=== PATIENT | female | born 1990 | race Caucasian/White ===

== ENCOUNTER 2019-05-14 08:28 | Emergency (ER) | payer BC, SELFPAY ==
[2019-05-14 08:43] VITALS: BP 131/79; PULSE 105; RESP 16; TEMP 37.6; O2SAT 99
--- NOTE | 2019-05-14 08:43 | ED.URI ---
HPI - URI/Sore Throat General Chief Complaint: Upper Respiratory Infection Stated Complaint: Cough Time Seen by Provider: 05/14/19 08:45 Source: patient and RN notes reviewed Mode of arrival: ambulatory Limitations: no limitations History of Present Illness HPI Narrative: 28 year old female presents to [facility] care with complaints of cough which is productive for the past 4 days, has nasal stuffiness, occipital headache, has felt feverish and had chills. Patient states that she has history of exertion asthma denies any feelings of dyspnea, denies any chest pain, pressure or feelings of palpitations. Patient admits to tobacco abuse of 1ppd of cigarettes for the past 11 years. Patient states that she has been taking Dayquil for her symptoms. MD elicited complaint: fever (states has felt feverish and had chills), cough, nasal congestion and other (headache) Pertinent past history: asthma Onset (ago): day(s) (4) Consistency: progressively worsening Severity: mild Pain scale (0-10): 2 Description of mucous: other (states thick) Able to tolerate fluids by mouth: Yes Exacerbating factors: exertion and deep breaths Relieving factors: nothing Associated symptoms: chills, nasal congestion and cough (productive) Treatments prior to arrival: other (dayquil,) Related Data Home Medications Medication Instructions Recorded Confirmed albuterol sulfate 2 puff INHALATION Q4-6H 05/14/19 05/14/19 gabapentin 300 mg PO TID 05/14/19 05/14/19 Allergies Allergy/AdvReac Type Severity Reaction Status Date / Time No Known Allergies Allergy Unknown Verified 05/14/19 08:48 Review of Systems Review of Systems: Narrative: CONSTITUTIONAL: reports has felt feverish, chills, or sweats. EYES: Denies visual changes, redness, or discharge. ENT: Denies rhinorrhea,nasal congestion, no sore throat, or otalgia. CARDIOVASCULAR: Denies chest pain, palpitations, or edema. RESPIRATORY: Positive cough denies dyspnea. GASTROINTESTINAL: Denies abdominal pain, nausea, vomiting, or diarrhea. GENITOURINARY: Denies dysuria or hematuria. SKIN: Denies rash or itching. MUSCULOSKELETAL: Denies back pain, joint pain, or myalgia. NEUROLOGIC: positive occipital headache, denies numbness, or weakness. PSYCHIATRIC: Denies anxiety or depression. All systems reviewed & are unremarkable except as noted in HPI and below PMFSH Past Medical History Medical History (Updated 05/14/19 @ 09:04 by Delilah Molina NP) Exertional asthma Ganglion cyst Surgical History Surgical History (Updated 05/14/19 @ 08:58 by Delilah Molina NP) Previous back surgery Family History Family History Grandparent Family history of hypercholesterolemia Hypertension Family history of malignant neoplasm of breast Family history of coronary artery disease, Onset Age: 40 Mother Hypertension Father Family history of coronary artery disease, Onset Age: 39 Social History Social History (Updated 05/14/19 @ 08:57 by Delilah Molina NP) Smoking packs per day: 1 Smoking cigarettes per day: 20.0 Years smoked: 11 Smoking pack-years: 11.00 Smoking status: Current every day smoker Living arrangements: with family Gender identity (if verbalized by the patient): Female Comments At time of signature, agree with nursing past medical, social history. There is no relevant family history pertinent to the presenting complaint Exam Narrative: Exam Narrative: GENERAL: Well-appearing, well-nourished, and in no acute distress. HEAD: Normocephalic, atraumatic. EYES: PERRLA and EOMI. ENT: Nares red, clear post nasal rhinorrhea no epistaxis. Mucous membranes moist. TM's normal with good light reflex, throat light red with no swelling,no tonsil enlargement, uvula midline NECK: Supple.no lymphadenopathy CHEST: Clear to auscultation. No respiratory distress.cough productive, SAO2 99% on room air. HEART: Regular rate
== END 2019-05-14 09:06 | disposition home or self-care (01) ==
PROVIDERS: Emergency Provider Registered Nurse
DX: J06.9 Acute upper respiratory infection, unspecified (principal); F17.200 Nicotine dependence, unspecified, uncomplicated; J45.909 Unspecified asthma, uncomplicated
CPT/HCPCS: 99213; G0463

== ENCOUNTER 2021-01-06 19:04 | Emergency (ER) | payer BC, SELFPAY ==
[2021-01-06 19:24] VITALS: BP 127/55; PULSE 85; RESP 18; TEMP 36.4; O2SAT 100
--- NOTE | 2021-01-06 19:47 | ED.GENADULT ---
HPI - General Adult General Chief complaint: Upper Respiratory Infection Stated complaint: sore throat Source: patient Mode of arrival: ambulatory Limitations: no limitations History of Present Illness HPI narrative: Patient is a 30-year-old female who presents to the [facility] via POV for evaluation of a sore throat that began2-3 days ago. She reports throat pain is irritating . Ibuprofen provides minimal relief. Nothing worsens throat pain. She reports strep throat exposure from her son and her fianc?. Related Data Home Medications Medication Instructions Recorded Confirmed albuterol sulfate 2 puff INHALATION Q4-6H 05/14/19 01/06/21 gabapentin 300 mg PO TID 05/14/19 01/06/21 Allergies Allergy/AdvReac Type Severity Reaction Status Date / Time No Known Allergies Allergy Unknown Verified 01/06/21 19:46 Review of Systems Review of Systems: Denies fever, chills, sweats, change in appetite, weight loss, drooling, difficulty swallowing, ear pain, rhinorrhea, nasal drainage, nasal congestion, sneezing, cough, shortness of breath, chest pain, heart palpitations, drooling, difficulty swallowing. [facility] Past Medical History Medical History Exertional asthma Ganglion cyst Surgical History Surgical History Previous back surgery Family History Family History Grandparent Family history of hypercholesterolemia Hypertension Family history of malignant neoplasm of breast Family history of coronary artery disease, Onset Age: 40 Mother Hypertension Father Family history of coronary artery disease, Onset Age: 39 Social History Social History Smoking packs per day: 1 Smoking cigarettes per day: 20.0 Years smoked: 11 Smoking pack-years: 11.00 Smoking status: Current every day smoker Gender identity (if verbalized by the patient): Female Exam Narrative: GENERAL: Well-appearing, well-nourished, and in no acute distress. HEAD: Normocephalic, atraumatic. No sinus tenderness or facial swelling appreciated. EYES: PERRLA and EOMI. No evidence of erythema, swelling, or drainage. ENT: Bilateral external ears and ear canals normal. Bilateral TMs are normal.No TM perforation. Nares clear, no rhinorrhea or epistaxis. Bilateral turbinates without erythema/ swelling. Mucous membranes moist and pink. Uvula is midline without erythema and swelling. Bilateral tonsils are moderately edematous and erythematous. Petechial rash noted to posterior pharynx. No evidence of cobblestoning, lesions, ulcers, exudates, peritonsillar abscess, tenting, or drooling. Breath odor and voice normal. NECK: Supple. No Lymphadenopathy or nuchal rigidity appreciated. CHEST: Bilateral lung mcadams are clear to auscultation. No respiratory distress. No evidence of cough or pleuritic cp upon examination. HEART: Regular rate and rhythm. No murmur, gallop, or rub heard. EXTREMITIES: Normal range of motion. No edema. SKIN: Warm, dry, no rash. NEURO: No focal deficits. Alert and oriented x3. Course Vital Signs Vital signs: Due to an abnormal blood pressure, I had a detailed discussion with the patient and/or guardian regarding the need for follow-up with their primary care provider within the next 3-4 days. Patient verbalized understanding and agreed. Medical Decision Making Differential Diagnosis Differential Diagnosis: Allergic rhinitis, ABRS, acute viral sinusitis, strep pharyngitis, nasopharyngitis, bronchitis, pneumonia, AOM, otitis externa, viral URI, influenza Medical Records Medical records reviewed: Yes I reviewed the external patient's medical records. Lab Data Lab results reviewed: Yes I reviewed the patient's lab results. Lab results narrative: Rapid strep ne
== END 2021-01-06 20:02 | disposition home or self-care (01) ==
PROVIDERS: Emergency Provider Nurse Practitioner Family; PCP Nurse Practitioner Adult Health
DX: J02.9 Acute pharyngitis, unspecified (principal); Z20.818 Contact with and (suspected) exposure to other bacterial communicable diseases
CPT/HCPCS: 87081; 87147; 87880; 99213; G0463